=== PATIENT | male | born 1970 | race Caucasian/White ===

== ENCOUNTER → 2016-12-01 | Outpatient (CLI) | payer OTHER | END | disposition home or self-care (01) | LOC: C.LABSPEC 11-30 11:17 | PROVIDERS: ATTEND Urology | DX: N20.0 Calculus of kidney (principal) ==

== ENCOUNTER → 2017-09-22 | Outpatient (CLI) | payer OTHER ==
--- NOTE | 2017-09-22 07:28 | DIAGNOSTIC IMAGING REPORT ---
Study: Fusion CT sinuses HISTORY: Chronic sinusitis FINDINGS: Moderate mucosal thickening of all major sinuses. Mild hypertrophic changes in the nasal turbinates. The right ostiomeatal unit is patent. Left ostomy unit show significant soft tissue narrowing. The bony structures are intact. There is no erosive or bony destructive change. IMPRESSION: Moderate mucosal thickening of all major sinuses. 2. High-grade soft tissue narrowing left ostiomeatal unit. 3. The right ostiomeatal unit is patent. 4. No bony destructive process. Electronically signed by: Des Gonzalez M.D. 09/22/2017 7:27 AM Dictated Date/Time: 09/22/2017 7:22 AM
== END | disposition home or self-care (01) ==
LOC: C.CTS 07:04
DX: J32.9 Chronic sinusitis, unspecified (principal)

== ENCOUNTER → 2017-10-02 | Outpatient (CLI) | payer OTHER ==
[2017-10-02 11:57] LABS: BASO % 0.3 %; BASO ABS # 0.04 K/uL (0-0.2); COMPLETE YES; HEMATOCRIT 45.4 % (42-52); LYMPH % 18.5 %; LYMPH ABS # 2.15 K/uL (1.2-3.4); MEAN CELL VOLUME 91.7 fL (80-100); MEAN CORPUSCULAR HEMOGLOBIN 30.5 pg (25-34); MEAN CORPUSCULAR HGB CONC 33.3 g/dl (32-36); MEAN PLATELET VOLUME 10.4 fL (7.4-10.4); MONO % 8.8 %; NEUT % 68.4 %; PLATELET COUNT 237 K/uL (130-400); RED BLOOD COUNT 4.95 M/uL (4.7-6.1); WHITE BLOOD COUNT 11.63 K/uL (4.8-10.8)
[2017-10-02 12:13] LABS: INR 0.9 (0.9-1.1)
[2017-10-02 12:20] LABS: POTASSIUM 4.2 mmol/L (3.5-5.1)
== END | disposition home or self-care (01) ==
LOC: C.LAB 09:54
DX: Z01.818 Encounter for other preprocedural examination (principal)

== ENCOUNTER → 2017-11-01 | Day surgery (SDC) | payer OTHER ==
[2017-10-21 09:17] VITALS: Ht 177.8 cm; Wt 100.0 kg
[~2017-11-01] VITALS: Ht 177.8 cm; Wt 100.0 kg
[~2017-11-01] MED LIST: ATROPINE SULFATE 0.1 MG/ML 5ML SYR IV PRN; CEFAZOLIN 2000MG IV PUSH 10 ML IV SCH; CLINDAMYCIN 600 MG/54 ML D5W IV SCH; CLINDAMYCIN 600MG IV SCH; DEXAMETHASONE SOD INJ 4 MG/ML VIAL ONE; ESOM20CA PO; EpHEDrine SULFATE 50MG/5ML SYR ONE; EpINEphrine INJ 1MG/ML AMP 1 MG/ML AMP ONE; FENTANYL CITRATE INJ 50 MCG/1 ML 2 ML VIAL IV PRN; FENTANYL CITRATE INJ 50 MCG/1 ML 2 ML VIAL ONE; GLYCOPYRROLATE INJ 0.2 MG/ML VIAL ONE; HYDROCODONE/ACETAMIN 5/325MG TAB PO PRN; LABETALOL HCL IV 5 MG/ML 20ML IV PRN; LACTATED RINGER'S 1000ML 1,000 ML IV SCH; LIDOCAINE 4% MPF SOAK 5 ML = 1 DOSE TOP ONE; LIDOCAINE/EPINEPHRINE 1% INJ 50 ML VIAL ONE; MIDAZOLAM HCL 1 MG/ML 2ML VIAL ONE; NEOSTIGMINE METHYLSULFATE 5 MG/5 ML SYR ONE; ONDANSETRON INJ 2 MG/ML 2 ML VIAL IV PRN; ONDANSETRON INJ 2 MG/ML 2 ML VIAL ONE; OXYMETAZOLINE HCL 0.05% NA SPR 15 ML BTL PRN; OXYMETAZOLINE HCL 0.05% NA SPR 15 ML BTL SCH; PROPOFOL IV EMULSION 10 MG/ML 20 ML VIAL IV ONE
--- NOTE | 2017-11-01 06:48 | History and Physical: Surg Cnt ---
History & Physical Date Nov 01, 2017. Chief Complaint CHRONIC SINUSITIS, SEPTAL DEVIATION, BILATERAL INFERIOR TURBINATE HYPERTROPHY History of Present Illness The patient is a 47 year old male with complaints of CHRONIC SINUSITIS, SEPTAL DEVIATION, BILATERAL INFERIOR TURBINATE HYPERTROPHY WITH SYMPTOMS DESPITE MAXIMAL MEDICAL RX. Past Medical/Surgical History PMH: ABOVE, ALLERGIC RHINITIS, GERD, OSTEOARTHRITIS, NEPHROLITHIASIS PSH: S/P APPY, S/P NICOL Additional History Hepatic Disease: No Endocrine Disorder: No Kidney Disease: No Hypertension: No Heart Disease: No Bleeding Tendencies: No Infectious Diseases: No Allergies Coded Allergies: Amoxicillin (Verified Allergy, Severe, LIP SWELLING, HIVES, 10/21/17) Home Medications Scheduled PRN Esomeprazole Magnesium (Nexium), 20 MG PO HS PRN for HEARTBURN Physical Examination Skin: warm/dry, no rash Eyes: normal inspection, EOMI, sclerae normal ENT: + pertinent finding (L DNS, R>L ITH) Head: normocephalic, atraumatic Neck: supple, no adenopathy, trachea midline Respiratory/Chest: lungs clear, normal breath sounds, no respiratory distress Cardiovascular: regular rate, rhythm, no edema, no murmur Neurologic/Psych: no motor/sensory deficits, alert, normal reflexes, oriented x 3 Diagnosis CHRONIC SINUSITIS, SEPTAL DEVIATION, BILATERAL INFERIOR TURBINATE HYPERTROPHY Plan of Treatment IMAGE-GUIDED BILATERAL FESS/SEPTOPLASTY/BILATERAL INFERIOR TURBINATE REDUCTION
--- NOTE | 2017-11-01 09:37 | [facility] Operative Report ---
Operative Report Operative Date Nov 01, 2017. Pre-Operative Diagnosis Chronic sinusitis, Septal Deviation, Bilateral Inferior Turbinate Hypertrophy Post-Operative Diagnosis same as preop Procedure(s) Performed Bilateral Endoscopic Sinus Surgery, Septoplasty, Bilateral Inferior Turbinate Reduction, Bilateral Kang Bullosa Resection Surgeon Dr. Lara Broadcast Meteorologist Surgeon(s) none Estimated Blood Loss 25ml Findings 1. SEVERE LEFT SEPTAL DEVIATION 2. BILATERAL KANG BULLOSAE 3. BILATERAL INFERIOR TURBINATE HYPERTROPHY 4. POLYPOID MUCOSAL THICKENING BILATERAL ETHMOID SINUSES 5. MILD MUCOSAL THICKENING LEFT FRONTAL, BILATERAL MAXILLARY, AND BILATERAL SPHENOID SINUSES Specimens none per surgeon I attest to the content of the Intraoperative Record and any orders documented therein. Any exceptions are noted below.
--- NOTE | 2017-11-01 09:39 | Discharge Instructions ---
Discharge Instructions Date of Service Nov 01, 2017. Admission Reason for Admission: Chronic Sinusitis, Deviated Nasal Septum, Discharge Discharge Diagnosis / Problem: SAME Discharge Goals Goal(s): Therapeutic intervention Activity Recommendations Activity Limitations: as noted below 1. NO NOSE BLOWING FOR 2 WEEKS 2. LIGHT ACTIVITY FOR 2 WEEKS 3. NO DRIVING WHILE ON NORCO . Current Hospital Diet Patient's current hospital diet: Discharge Diet Recommended Diet: Regular Diet Procedures Procedures Performed: Bilateral Endoscopic Sinus Surgery, Septoplasty, Bilateral Inferior Turbinate Reduction, Bilateral Kenna Bullosa Resection Pending Studies Studies pending at discharge: no Medical Emergencies . Who to Call and When: Medical Emergencies: If at any time you feel your situation is an emergency, please call 911 immediately. . Non-Emergent Contact Non-Emergency issues call your: Surgeon . . "Provider Documentation" section prepared by Geovany Lara. . VTE Core Measure Inpt VTE Proph given/why not?: SCD's
[2017-11-01 10:25] VITALS: TEMP 36.8
[2017-11-01 10:49] VITALS: BP 124/78; PULSE 83; O2SAT 95
--- NOTE | 2017-11-01 11:17 | Anesthesia Progress Nt - [facility] ---
Anesthesia Post Op Note Date & Time Nov 01, 2017 at 11:16 Vital Signs Pain Intensity: 0 Vital Signs Past 12 Hours Date Time Temp Pulse Resp B/P (MAP) Pulse Ox O2 Delivery O2 Flow Rate FiO2 11/01/17 10:49 83 16 124/78 (93) 95 Room Air 11/01/17 10:25 36.8 87 16 106/69 (81) 95 Room Air 11/01/17 10:16 126/86 11/01/17 10:12 91 10 91 11/01/17 10:12 90 10 11/01/17 10:11 114/89 11/01/17 10:07 93 12 11/01/17 10:07 91 12 93 11/01/17 10:06 96 11 11/01/17 10:06 96 11 125/86 93 11/01/17 10:04 36.6 93 20 125/86 94 Room Air 11/01/17 10:01 84 20 11/01/17 10:01 84 20 121/85 96 11/01/17 09:57 122/87 11/01/17 09:56 95 21 11/01/17 09:56 96 21 96 11/01/17 09:51 96 18 11/01/17 09:51 97 18 173/74 97 11/01/17 09:47 157/76 11/01/17 09:46 94 25 11/01/17 09:46 93 25 98 11/01/17 09:42 138/84 11/01/17 09:41 36.5 99 20 138/84 99 Humidified Oxygen 9 Mask 11/01/17 06:48 36.6 91 16 145/94 (111) 95 Room Air Notes Mental Status: alert / awake / arousable, participated in evaluation Pt Amnestic to Procedure: Yes Nausea / Vomiting: adequately controlled Pain: adequately controlled Airway Patency, RR, SpO2: stable & adequate BP & HR: stable & adequate Hydration State: stable & adequate Anesthetic Complications: no major complications apparent
--- NOTE | 2017-11-01 11:21 | OPERATIVE REPORT ---
DATE OF OPERATION: 11/01/2017 PREOPERATIVE DIAGNOSES: 1. Left septal deviation. 2. Bilateral maría elena bullosa. 3. Bilateral inferior turbinate hypertrophy. 4. Chronic polypoid rhinosinusitis. POSTOPERATIVE DIAGNOSES: 1. Left septal deviation. 2. Bilateral maría elena bullosa. 3. Bilateral inferior turbinate hypertrophy. 4. Chronic polypoid rhinosinusitis. PROCEDURES: [employer] fusion image guided bilateral endoscopic sinus surgery consisting of: 1. Bilateral endoscopic maría elena bullosa resection. 2. Bilateral maxillary antrostomy. 3. Bilateral complete ethmoidectomies. 4. Bilateral sphenoidotomies. 5. Balloon sinuplasty assisted left frontal sinusotomy. 6. Septoplasty. 7. Bilateral inferior turbinate outfracture and turbinoplasty. SURGEON: Dr. Geovany Lara. ANESTHESIA: General endotracheal. ESTIMATED BLOOD LOSS: 25 mL. FINDINGS: 1. Severe left septal deviation. 2. Right greater than left inferior turbinate hypertrophy. 3. Bilateral maría elena bullosa. 4. Mild mucosal thickening involving the bilateral maxillary, left frontal, and bilateral sphenoid sinuses. 5. Polypoid mucosal thickening involving the bilateral ethmoid sinuses. SPECIMENS: None. COMPLICATIONS: None. INDICATIONS FOR THE PROCEDURE: The patient is a 47-year-old male with the above-mentioned history, which has been refractory to maximal medical therapy including systemic antibiotics and steroids. Posttreatment image guided sinus CT scan showed pansinusitis with an aplastic right frontal sinus as well as left septal deviation and bilateral inferior turbinate hypertrophy along with bilateral maría elena bullosa. The patient presents for the above-mentioned procedures on an outpatient elective basis. DESCRIPTION OF PROCEDURE: After informed consent had been obtained from the patient, the patient was wheeled to the operating room and placed on the operating table in the supine position. Monitors were placed. After induction of general endotracheal anesthesia, the patient was prepped in the usual fashion for image guided endoscopic sinus surgery. The [employer] fusion headset was placed over the forehead and was registered, calibrated, and verified and used for the frontal sinus and sphenoid sinus portion of the procedures primarily. Lidocaine and epinephrine pledgets were placed in the bilateral nasal cavities and pressure applied. The right-sided pledgets were first removed. A freer elevator was used to medialize the right middle turbinate. The right middle turbinate as well as lateral nasal wall were injected with 1% lidocaine with 1:100,000 epinephrine. A lidocaine and epinephrine pledget was then placed in the right middle meatus. Left nasal cavity was inspected. The sinus surgery on this side could not be done prior to the septoplasty since there was a severe deviation of the septum to the left with near 100% airway obstruction on that side. The right pledget was removed. A sickle knife was used to incise the right middle turbinate longitudinally and the lateral half of the middle turbinate was removed using straight Deandre-Cut forceps and powered instrumentation. An uncinatectomy was then performed using a freer elevator, straight Deandre-Cut forceps, and powered instrumentation. The natural ostium of the right maxillary sinus was identified and this was enlarged anteriorly, inferiorly, and posteriorly using backbiting forceps and powered instrumentation. A right complete ethmoidectomy was then performed using powered instrumentation. A transnasal approach to the sphenoid sinus was then undertaken and the right sphenoid sinus was entered and this was confirmed using image guidance system. The medial and inferior aspect of the right sphenoid ostium was enlarged using powered instrumentation. Lidocaine and epinephrine pledget was then placed into the right ethmoid cavity. The septoplasty was then performed. The nasal septum was injected with 1% lidocaine with 1:100,000 epinephrine thereby performing hydrodissection of the mucoperichondrial and mucoperiosteal flaps. Lidocaine and epinephrine pledgets were placed in the bilateral nasal cavities. Curved iris scissors was used to trim the patient's nasal vibrissae. The pledgets were then removed. A #15 scalpel was used to make a left Bobby incision, through which the left-sided mucoperichondrial and mucoperiosteal flap was elevated. A #15 scalpel was then used to incise the quadrangular cartilage with care to preserve a 1.5-cm dorsal and caudal strut and a right-sided mucoperichondrial and mucoperiosteal flap was elevated through this cartilaginous incision. A Fabien swivel knife was then used to remove the deviated portions of quadrangular cartilage. A Patel forceps was used to remove septal bone more posteriorly that was impacting on the airway superiorly on the left hand side. There was a large bony septal spur, which was impinging on the left nasal airway posteriorly. This was actually infractured with a Quispe elevator with straightening of the nasal septum posteriorly and no septal bone was removed in this location. Septal cavity was then suctioned. The left Bobby incision was closed with several simple interrupted 4-0 chromic sutures. A 4-0 plain gut suture on a Jatinder needle was then used to perform a quilting stitch of the mucoperichondrial and mucoperiosteal flaps bilaterally to help prevent septal hematoma. The left-sided maxillary antrostomy, complete ethmoidectomy, and sphenoidotomy were then performed in a similar fashion as described on the right hand side. A curved frontal sinus suction was then used to cannulate the left frontal sinus. A #6 frontal sinus balloon was inflated to 12 atmospheres of pressure at 2 different locations along the left frontal recess tract. Powered instrumentation was used to remove polypoid tissue from the left frontal ethmoidal recess in order to perform a left frontal sinusotomy. Intraoperative findings were polypoid mucosal thickening involving the bilateral ethmoid sinuses. There was mild mucosal thickening involving the bilateral maxillary and sphenoid sinuses as well as a left frontal sinus. There is no purulence or gil polyposis. Merogel was then placed in the bilateral ethmoid cavities. Then, inferior turbinates were injected with 1% lidocaine with 1:100,000 epinephrine. Quispe elevator was used to infracture and subsequently outfracture the inferior turbinates bilaterally. A 2.0-mm turbinate blade using powered instrumentation was then used to perform bilateral inferior turbinoplasties in the submucosal fashion. The sinonasal cavity was then suctioned. An orogastric tube was placed and the stomach was suctioned free of air and stomach contents. This marked the end of the case. The patient tolerated the procedure well. There were no apparent complications. The patient was extubated and transferred to recovery room in stable condition. I attest to the content of the Intraoperative Record and any orders documented therein. Any exception s are noted below.
--- NOTE | 2017-11-04 17:07 | OPERATIVE REPORT ---
DATE OF OPERATION: 11/01/2017 ADDENDUM The patient did undergo an endoscopic left maría elena bullosa resection in a similar fashion as he had on the right hand side. I attest to the content of the Intraoperative Record and any orders documented therein. Any exception s are noted below.
== END | disposition home or self-care (01) ==
LOC: X.SURG 06:21
DX: J32.9 Chronic sinusitis, unspecified (principal); J34.2 Deviated nasal septum; J34.3 Hypertrophy of nasal turbinates; K21.9 Gastro-esophageal reflux disease without esophagitis; M19.90 Unspecified osteoarthritis, unspecified site; Z87.442 Personal history of urinary calculi; Z90.89 Acquired absence of other organs; Z90.49 Acquired absence of other specified parts of digestive tract; Z88.1 Allergy status to other antibiotic agents; E66.9 Obesity, unspecified

== ENCOUNTER → 2017-11-11 | Outpatient (CLI) | payer OTHER ==
[~2017-11-11] MED LIST changes: -ATROPINE SULFATE 0.1 MG/ML 5ML SYR IV PRN; -CEFAZOLIN 2000MG IV PUSH 10 ML IV SCH; -CLINDAMYCIN 600 MG/54 ML D5W IV SCH; -CLINDAMYCIN 600MG IV SCH; -DEXAMETHASONE SOD INJ 4 MG/ML VIAL ONE; -EpHEDrine SULFATE 50MG/5ML SYR ONE; -EpINEphrine INJ 1MG/ML AMP 1 MG/ML AMP ONE; -FENTANYL CITRATE INJ 50 MCG/1 ML 2 ML VIAL IV PRN; -FENTANYL CITRATE INJ 50 MCG/1 ML 2 ML VIAL ONE; -GLYCOPYRROLATE INJ 0.2 MG/ML VIAL ONE; -HYDROCODONE/ACETAMIN 5/325MG TAB PO PRN; -LABETALOL HCL IV 5 MG/ML 20ML IV PRN; -LACTATED RINGER'S 1000ML 1,000 ML IV SCH; -LIDOCAINE 4% MPF SOAK 5 ML = 1 DOSE TOP ONE; -LIDOCAINE/EPINEPHRINE 1% INJ 50 ML VIAL ONE; -MIDAZOLAM HCL 1 MG/ML 2ML VIAL ONE; -NEOSTIGMINE METHYLSULFATE 5 MG/5 ML SYR ONE; -ONDANSETRON INJ 2 MG/ML 2 ML VIAL IV PRN; -ONDANSETRON INJ 2 MG/ML 2 ML VIAL ONE; -OXYMETAZOLINE HCL 0.05% NA SPR 15 ML BTL PRN; -OXYMETAZOLINE HCL 0.05% NA SPR 15 ML BTL SCH; -PROPOFOL IV EMULSION 10 MG/ML 20 ML VIAL IV ONE
--- NOTE | 2017-11-11 09:14 | DIAGNOSTIC IMAGING REPORT ---
KUB HISTORY: N20.0 Nephrolithiasis COMPARISON: Abdomen and pelvis CT outside hospital 11/24/2016. FINDINGS: The bowel gas pattern is unremarkable. There are no dilated loops of small bowel to suggest an obstruction. Prior cholecystectomy. No right renal calculi. There are few punctate stones within the left kidney, unchanged. Dominant stone measures 4 mm within the lower pole. No ureteral or bladder calculi identified. A few round calcifications in the deep pelvis are consistent with phleboliths. No pneumoperitoneum or pneumatosis. IMPRESSION: 1. Stable left-sided nephrolithiasis. 2. No ureteral stones identified. Electronically signed by: Rito Simmons M.D. 11/11/2017 9:13 AM Dictated Date/Time: 11/11/2017 9:11 AM
== END | disposition home or self-care (01) ==
LOC: C.RAD 08:44
PROVIDERS: ATTEND Urology
DX: N20.0 Calculus of kidney (principal)